=== PATIENT | female | born 1980 | race American Indian/Alaskan Native ===

== ENCOUNTER 2018-12-30 02:57 | Outpatient (CLI) | payer OTHER ==
[2018-12-30 03:12] VITALS: BP 121/76
== END 2018-12-30 06:34 | disposition home or self-care (01) ==
LOC: TRG 02:57
PROVIDERS: ATTEND Obstetrics & Gynecology
DX: O62.9 Abnormality of forces of labor, unspecified (principal); Z3A.39 39 weeks gestation of pregnancy
CPT/HCPCS: 59025

== ENCOUNTER 2018-12-30 15:06 | Inpatient (IN) | payer OTHER ==
[2018-12-30] MEDS ORDERED: ONDANSETRON 4 MG/2 ML INJ IV PRN ×2 (15:17→22:16)
[2018-12-30] MEDS ORDERED: TERBUTALINE 1 MG/1 ML INJ IVP PRN (15:17)
[2018-12-30] MEDS ORDERED: LIDOCAINE (2%) 20 MG/1 ML VIAL 20 ML MDV INFILTRATI ONE (15:17)
[2018-12-30] MEDS ORDERED: ePHEDrine SULFATE 50 MG/1 ML INJ IV PRN ×2 (15:17→17:41)
[2018-12-30] MEDS ORDERED: TERBUTALINE 1 MG/1 ML INJ SUB-Q PRN (15:17)
[2018-12-30] MEDS ORDERED: AMPICILLIN/NS 2 GM/100 ML 2 GM/100 ML BAG IV ONE (15:17)
[2018-12-30] MEDS ORDERED: MINERAL OIL 30 ML ORAL LIQD PO PRN (15:17)
--- NOTE | 2018-12-30 15:33 | History and Physical Report ---
History of Present Illness Date of examination: 12/30/18 Date of admission: 12/30/2018 Chief complaint: labor History of present illness: Patient reports contractions started to become regular and painful at midnight last night. She denies any vaginal bleeding or LOF. She reports +FM. Past History Past Medical History: other (fibroids) Past Surgical History: other (cyst removed from right face 05/2018) [employer] History: fibroids. denies: abnormal PAP smear, cancer, chlamydia, g onorrhea, hepatitis B, hepatitis C, herpes, HIV, syphilis, trichomonas Family/Genetic History: none Social history: no significant social history, , lives with family. denies: smoking, alcohol abuse, prescription drug abuse, IV drug use - Obstetrical History Expected Date of Delivery: 01/05/19 Actual Gestation: 39 Week(s) 1 Day(s) : 2 Para: 1 Hx # Term Pregnancies: 1 ( 10/19/2010, pt reports no complications) Number of Pregnancies: 0 Spontaneous Abortions: 0 Induced : 0 Number of Living Children: 1 Medications and Allergies Allergies Allergy/AdvReac Type Severity Reaction Status Date / Time No Known Allergies Allergy Verified 12/30/18 03:34 Active Meds: Active Medications Ephedrine Sulfate (Ephedrine Sulfate) 10 mg IV Q2M PRN PRN Reason: Hypotension Oxytocin/Sodium Chloride (Pitocin/Ns 20 Unit/1000ml Drip) 20 units in 1,000 mls @ 125 mls/hr IV DIRECT VIJAYA Lactated Ringer's (Lactated Ringers) 1,000 mls @ 125 mls/hr IV DIRECT VIJAYA Ampicillin Sodium (Ampicillin/Ns 1 Gm/50 Ml) 1 gm in 50 mls @ 100 mls/hr IV Q4HR VIJAYA; Protocol Ampicillin Sodium (Ampicillin/Ns 2 Gm/100 Ml) 2 gm in 100 mls @ 100 mls/hr IV ONCE ONE; Protocol Stop: 12/30/18 16:16 Lidocaine (Xylocaine 2%) 20 ml INFILTRATI ONCE ONE Stop: 12/30/18 15:18 Mineral Oil (Mineral Oil) 30 ml PO QHS PRN PRN Reason: Constipation Ondansetron HCl (Zofran) 4 mg IV Q8H PRN PRN Reason: Nausea And Vomiting Terbutaline Sulfate (Brethine) 0.25 mg SUB-Q ONCE PRN PRN Reason: Hyperstimulation/Hypertonicity Terbutaline Sulfate (Brethine) 0.25 mg IVP ONCE PRN PRN Reason: Hyperstimulation/Hypertonicity Review of Systems All systems: negative Genitourinary: contractions, no vaginal bleeding (+FM), no leakage of fluid - Physical Exam Breasts: Positive: normal Cardiovascular: Regular rate, Normal S1, Normal S2 Lungs: Positive: Clear to auscultation, Normal air movement Abdomen: Positive: normal appearance, soft, normal bowel sounds. Negative: distention, tenderness Genitourinary (Female): Positive: normal external genitalia, normal perenium Vulva: both: normal Vagina: Positive: normal moisture. Negative: discharge Cervix: Negative: lesion, discharge Uterus: Positive: normal size, normal contour Adnexa: both: normal Anus/Rectum: Positive: normal perianal skin, heme negative. Negative: rectal mass, hemorrhoids Extremities: Deep Tendon Reflex Grade: Normal +2 - Obstetrical FHR: auscultation normal, category 1 Uterine Contraction Monitor Mode: External Cervical Dilatation: 7 (per watershed manager) Uterine Contraction Frequency (min): q3m Uterine Contraction Duration: 60-90 Uterine Contraction Pattern: Regular Uterine Tone Measurement Phase: Contraction Uterine Contraction Intensity: Moderate Results Result Diagrams: 12/30/18 15:20 All other labs normal. Assessment and Plan 38 y.o. IUP at 39w1d by stated EDC of 01/05/19 presents to triage with c/o contractions. SVE 7 cm, IBOW, vertex per watershed manager. Routine labor admission orders placed in chart. Abx ordered for unknown GBS. Pt desires epidural for pain management. Labs drawn and IV bolus started in attempt to receive epidural prior to delivery. Pt presents with records from care in [facility] last appt was in September prior to coming to [place]. Records reviewed and placed to be scanned into chart. Dr. Humphries aware of patient admission and assessment. Anticipate .
[2018-12-30 16:12] LABS: Hematocrit 36.3 % (30.3-42.9); Hemoglobin 12.8 gm/dl (10.1-14.3); Mean Corpuscular HGB Conc 35 % (30-34); Mean Corpuscular Volume 87 fl (79-97); Platelet Count 244 K/mm3 (140-440); Red Blood Count 4.18 M/mm3 (3.65-5.03); Red Cell Distribution Width 13.2 % (13.2-15.2)
[2018-12-30] MEDS: LACTATED RINGERS 1,000 ML IV SCH ×3 (16:25→19:50)
[2018-12-30] MEDS ORDERED: fentaNYL 100 MCG/2 ML INJ IV PRN (17:13)
[2018-12-30] MEDS ORDERED: NALOXONE 2 MG/2 ML INJ IV PRN (17:41)
--- NOTE | 2018-12-30 17:42 | Anesthesia Consultation ---
Anesthesia Consult and Med Hx Date of service: 12/30/18 - Airway Anesthetic Teeth Evaluation: Good ROM Head & Neck: Adequate Mental/Hyoid Distance: Adequate Mallampati Class: Class II Intubation Access Assessment: Good - Pulmonary Exam CTA: Yes - Cardiac Exam Cardiac Exam: RRR - Pre-Operative Health Status ASA Pre-Surgery Classification: ASA2, Emergency Proposed Anesthetic Plan: Epidural, Spinal - Pulmonary Hx Asthma: No COPD: No Hx Pneumonia: No - Cardiovascular System Hx Hypertension: No - Central Nervous System Hx Seizures: No Hx Psychiatric Problems: No - Endocrine Hx Renal Disease: No Hx End Stage Renal Disease: No Hx Hypothyroidism: No Hx Hyperthyroidism: No - Hematic Hx 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
[2018-12-30] MEDS ORDERED: fentaNYL-BUPIV 2 MCG/ML-0.125% 200 MCG/100 ML BAG EPIDURAL SCH (18:00)
[2018-12-30] MEDS ORDERED: BUPIVACAINE/PF (0.25%) 2.5 MG/ML 10 ML VIAL INFILTRATI ONE (18:55)
[2018-12-30] MEDS ORDERED: AMPICILLIN/NS 1 GM/50 ML 1 GM/50 ML BAG IV SCH (19:20)
[2018-12-30] MEDS: OXYTOCIN 20 UNIT/1000ML DRIP 20 UNITS/1,000 ML BAG IV SCH ×2 (20:35→22:15)
--- NOTE | 2018-12-30 20:53 | Procedure Note ---
OB Delivery Note - Delivery Date of Delivery: 12/30/18 Surgeon: MILA COATES Estimated blood loss: other (250mL) - Vaginal Delivery presentation: vertex Delivery position: OA Delivery induction: none Delivery monitor: external FHT, external uterine Route of delivery: Delivery placenta: spontaneous (intact) Episiotomy: none Delivery laceration: none Anesthesia: epidural - A at 1 minute: 8 at 5 minutes: 9 Infant Gender: Male
[2018-12-30] MEDS ORDERED: LANOLIN/ZINC/DIMETHICONE (LANSINOH) 7 GM TP PRN (22:16)
[2018-12-30] MEDS ORDERED: diphenhydrAMINE 25 MG CAP PO PRN (22:16)
[2018-12-30] MEDS ORDERED: PROMETHAZINE 25 MG RECT SUPP PR PRN (22:16)
[2018-12-30] MEDS ORDERED: WITCH HAZEL/ GLYCERIN PAD TP PRN (22:16)
[2018-12-30] MEDS ORDERED: PROMETHAZINE 25 MG TAB PO PRN (22:16)
[2018-12-30] MEDS ORDERED: ACETAMINOPHEN 325 MG TAB PO PRN (22:16)
[2018-12-30] MEDS ORDERED: MAGNESIUM HYDROXIDE (MOM) ORAL LIQD UDC PO PRN (22:16)
[2018-12-30] MEDS: IBUPROFEN 600 MG TAB PO SCH (22:47)
[2018-12-31] MEDS: ACETAMINOPHEN 325 MG TAB PO PRN ×2 (02:12→09:29)
[2018-12-31] MEDS: IBUPROFEN 600 MG TAB PO SCH ×4 (05:40→23:03)
[2018-12-31] MEDS ORDERED: TETANUS,DIPH,PERTUSS(ACELL) VACCINE 0.5 ML SYRINGE IM ONE (06:00)
[2018-12-31 09:39] LABS: Hemoglobin 8.9 gm/dl (10.1-14.3)
[2018-12-31 09:40] LABS: Hematocrit 24.4 % (30.3-42.9)
--- NOTE | 2018-12-31 10:19 | Post Anesthesia Evaluation ---
- Post Anesthesia Evaluation Patient Participated: Yes Airway Patent: Yes Stable Respiratory Function: Yes Nausea/Vomiting: No Temp > 96.8F: Yes Pain Manageable: Yes Adequeate Hydration: Yes Anesthesia Complications: No Block Receding Appropriately: Yes Patient on Ventilator: No
--- NOTE | 2018-12-31 10:22 | Discharge Summary ---
Providers - Providers Date of Admission: 12/30/18 15:17 Date of discharge: 12/31/18 (pt requests d/c home when has been cleared) Attending physician: MILA COATES Primary care physician: MILA COATES Hospitalization Reason for admission: Labor Condition: Good Pertinent studies: H&H 8.9/24.4 Procedures: Hospital course: uncomplicated and course Disposition: DC- TO HOME OR SELFCARE - Discharge Diagnoses (1) (normal spontaneous vaginal delivery) Status: Acute (2) Anemia due to blood loss, acute Status: Acute Core Measure Documentation - Palliative Care Palliative Care/ Comfort Measures: Not Applicable - Core Measures Any of the following diagnoses?: none Exam - Constitutional Vitals: Temp Pulse Resp BP Pulse Ox 98.3 F 100 H 18 106/63 96 12/31/18 09:01 12/31/18 09:01 12/31/18 09:01 12/31/18 09:01 12/31/18 09:01 General appearance: Present: no acute distress, well-nourished - EENT Eyes: Present: PERRL ENT: hearing intact, clear oral mucosa - Neck Neck: Present: supple, normal ROM - Respiratory Respiratory effort: normal Respiratory: bilateral: CTA - Cardiovascular Heart Sounds: Present: S1 & S2. Absent: rub, click - Extremities Extremities: pulses symmetrical, No edema Peripheral Pulses: within normal limits - Abdominal General gastrointestinal: Present: soft, non-tender, non-distended, normal bowel sounds Female genitourinary: Present: normal - Integumentary Integumentary: Present: clear, warm, dry - Musculoskeletal Musculoskeletal: gait normal, strength equal bilaterally - Psychiatric Psychiatric: appropriate mood/affect, intact judgment & insight - Neurologic Neurologic: CNII-XII intact, moves all extremities - Additional findings Additional findings: fundus firm, lochia scant, breast and bottle feeding Plan Activity: no restrictions Diet: regular Wound: open to air, keep clean and dry Follow up with: MILA COATES MD [Primary Care Provider] - 7 Days (Congratulations! Please call [phone] to schedule your visit in 4 weeks and your son's circumcision in 1 week. Bring EMLA cream to the office and await further teaching. Call for any questions or concerns.) Prescriptions: Lidocain2.5%/Prilocai2.5% [Emla] 5 gm TP ONCE #1 tube Ibuprofen [Motrin 800 MG tab] 800 mg PO Q8HR PRN #30 tablet PRN Reason: Pain
[2018-12-31] MEDS ORDERED: HYDROcodone/ACETAMINOPHEN 5-325 MG TAB PO ONE (11:00)
[2018-12-31] MEDS ORDERED: FLU VACC QUAD 2019-20 (3 YR UP)/PF 60 MCG/0.5 ML SYRINGE IM ONE (12:00)
[2019-01-01] MEDS: IBUPROFEN 600 MG TAB PO SCH (05:08)
[2019-01-01] MEDS ORDERED: ACETAMINOPHEN 500 MG TAB PO ONE (09:49)
[2019-01-01 11:40] VITALS: BP 123/76
--- NOTE | 2019-01-01 13:30 | Event Note ---
Date: 01/01/19 d/c changed to today d/t baby being held 48hrs. VSSAF, pt remains stable. normal discomforts from involution. d/c home today.
[2019-01-11 12:08] LABS: HIV-1 Antibody Differentiation SEE SCANNED RESULT; HIV-2 Antibody Differentiation SEE SCANNED RESULT
== END 2019-01-01 15:48 | disposition home or self-care (01) | DRG 775 ==
LOC: TRG 15:06 → LD 15:07 → TRG 15:17 → LD 15:17 → OB 12-31 00:06
PROVIDERS: ADMIT Obstetrics & Gynecology; ATTEND Obstetrics & Gynecology
PROC: 10E0XZZ Delivery of Products of Conception, External Approach (ICD-10-PCS; principal; 2018-12-30)
PROC: 3E0R3BZ Introduction of Anesthetic Agent into Spinal Canal, Percutaneous Approach (ICD-10-PCS; 2018-12-30)
PROC: 00HU33Z Insertion of Infusion Device into Spinal Canal, Percutaneous Approach (ICD-10-PCS; 2018-12-30)
PROC: 3E0234Z Introduction of Serum, Toxoid and Vaccine into Muscle, Percutaneous Approach (ICD-10-PCS; 2018-12-31)
DX: O99.02 Anemia complicating childbirth (principal); D62 Acute posthemorrhagic anemia; Z23 Encounter for immunization; Z3A.39 39 weeks gestation of pregnancy; Z37.0 Single live birth
CPT/HCPCS: 36415; 59025; 85014; 85018; 85027; 86592; 86689; 86803; 86850; 86900; 86901; 87902; 90471; 90715; G0378; J0290; J2590; J3010; J3105; J7120